=== PATIENT | female | born 1990 | race African-American/Black ===

== ENCOUNTER 2017-03-17 17:55 | Emergency (ER) | payer SELFPAY ==
[2017-03-17 17:57] VITALS: BP 123/55; PULSE 106; RESP 16; TEMP 98.9; O2SAT 99
--- NOTE | 2017-03-17 18:49 | RADRPT ---
EXAM DATE/TIME: 03/17/2017 18:40 [facility] COMPARISON: No previous studies available for comparison. INDICATIONS : Left wrist pain after fall playing basketball. MEDICAL HISTORY : None. SURGICAL HISTORY : None. ENCOUNTER: Initial ACUITY: 1 day PAIN SCORE: 10/10 LOCATION: Left wrist. FINDINGS: Three view examination of the left wrist demonstrates no soft tissue swelling, dislocation, or fractu re. The carpal bones are in normal alignment. The joint spaces are maintained. Bony mineralization is normal. CONCLUSION: Normal examination for a patient of this age. Jacques Soto MD on March 17, 2017 at 18:47 Board Certified Radiologist. This report was verified electronically.
--- NOTE | 2017-03-17 18:58 | RADRPT ---
EXAM DATE/TIME: 03/17/2017 18:43 [facility] COMPARISON: No previous studies available for comparison. INDICATIONS : Left shoulder pain after fall playing basketball. MEDICAL HISTORY : None. SURGICAL HISTORY : None. ENCOUNTER: Initial ACUITY: 1 day PAIN SCORE: 10/10 LOCATION: Left shoulder. FINDINGS: Multiple view examination of the left shoulder demonstrates no evidence of fracture or dislocation. The glenohumeral and acromioclavicular joints are maintained. There is normal range of motion betwee n internal and external rotation. Bony mineralization is normal. CONCLUSION: Normal examination for a patient of this age. Jacques Soto MD on March 17, 2017 at 18:56 Board Certified Radiologist. This report was verified electronically.
[2017-03-17] MEDS ORDERED: CYCL10TA PO (20:44)
[2017-03-17] MEDS ORDERED: IBUP1TAB7 PO (20:44)
--- NOTE | 2017-03-17 20:44 | PD ---
HPI Chief Complaint: Injury Time Seen by Provider: 20:36 Travel History International Travel<30 days: No Contact w/Intl Traveler<30days: No Traveled to known affect area: No History of Present Illness HPI Patient is a 26-year-old female presenting to the emergency department for evaluation of left shoulder and left wrist pain. Patient states she's playing basketball this morning and went up for a lay out and someone tripped her and she landed on her shoulder and wrist. She reports her pain is 8 out of 10, the pain is exacerbated with movement, somewhat alleviated with rest. Symptom onset was gradual and has gotten worse throughout the course of the day. Patient is not taking any medication to alleviate her pain. She denies any other injury. Patient reports her pain is sore. She denies any numbness, weakness or paresthesias. PFSH Past Medical History Medical History: Denies Significant Hx Social History Alcohol Use: No Tobacco Use: No Substance Use: No Allergies-Medications (Allergen,Severity, Reaction): Coded Allergies: No Known Allergies (Unverified , 03/17/17) Review of Systems Except as stated in HPI: all other systems reviewed are Neg Musculoskeletal: Positive: Myalgias, Arthralgias, Limited ROM, Pain Physical Exam Narrative GENERAL: Well-developed, well-nourished, alert female. Resting in no acute distress. SKIN: Warm and dry. No Rash, abrasions, ecchymosis or obvious lesions noted. HEAD: Normocephalic. EYES: No scleral icterus. No injection or drainage. NECK: Supple, trachea midline. No JVD or lymphadenopathy. CARDIOVASCULAR: Regular rate and rhythm without murmurs, gallops, or rubs. RESPIRATORY: Breath sounds equal bilaterally. No accessory muscle use. GASTROINTESTINAL: Abdomen soft, non-tender, nondistended. MUSCULOSKELETAL: No cyanosis, or edema. Tenderness to palpation anterior left shoulder, and left wrist. Decreased active range of motion with abduction of left shoulder. 2+ radial pulse, brisk less than 3 second capillary refill. BACK: Nontender without obvious deformity. No CVA tenderness. Data Data Last Documented VS Vital Signs Date Time Temp Pulse Resp B/P (MAP) Pulse Ox O2 Delivery O2 Flow Rate FiO2 03/17/17 17:57 98.9 106 16 123/55 (77) 99 Orders Orders Wrist, Complete ([id number]) (03/17/17 ) Shoulder, Complete (>2vws) (03/17/17 ) [facility] Medical Decision Making Medical Screen Exam Complete: Yes Emergency Medical Condition: Yes Interpretation(s) Last Impressions Wrist X-Ray 03/17/17 0000 Signed Impressions: Service Date/Time: Friday, March 17, 2017 18:40 - CONCLUSION: Normal examination for a patient of this age. Jacques Soto MD Shoulder X-Ray 03/17/17 0000 Signed Impressions: Service Date/Time: Friday, March 17, 2017 18:43 - CONCLUSION: Normal examination for a patient of this age. Jacques Soto MD Vital Signs Date Time Temp Pulse Resp B/P (MAP) Pulse Ox O2 Delivery O2 Flow Rate FiO2 03/17/17 17:57 98.9 106 16 123/55 (77) 99 Differential Diagnosis Strain versus sprain versus fracture versus contusion versus tendinitis versus other Narrative Course Patient presented for evaluation of left shoulder and wrist pain after playing basketball and falling on it this morning. Patient is neurovascularly intact, no focal deficits noted on exam. Imaging was ordered while patient was waiting in triage. Imaging of the left shoulder and wrist is negative for acute fracture. Physical examination appears most consistent with muscle strain. Patient was encouraged to apply warm heat to affected area, continue range of motion exercises, avoid exacerbating activities, and avoid bed rest. She was encouraged to return to emergency department for any new or worsening symptoms or follow up with her primary doctor. Patient verbalized understanding of these instructions. Patient stable for discharge. Diagnosis Primary Impression: Shoulder injury Qualified Codes: S49.92XA - Unspecified injury of left shoulder and upper arm , initial encounter Additional Impressions: Strain of wrist Qualified Codes: S66.912A - Strain of unspecified muscle, fascia and tendon at wrist and hand level, left hand, initial encounter Muscle ache Referrals: [facility] Primary Care Physician Patient Instructions: General Instructions, Muscle Spasm (ED), Muscle Strain ( ED) Departure Forms: Tests/Procedures, Work Release Special Instructions: No excessive use of left arm for 3-4 days Additional Instructions: Continue range of motion exercises, apply warm heat to the affected areas, avoid bed rest, avoid exacerbating activities Take medications as directed Follow-up with your primary doctor Return to emergency department for any new or worsening symptoms Med/Other Pt SpecificInfo: Prescription(s) given Scripts Cyclobenzaprine (Flexeril) 10 Mg Tab 10 MG PO TID Y for MUSCLE SPASM, #30 TAB 0 Refills Prov: Melany Arechiga 03/17/17 Ibuprofen (Ibuprofen) 800 Mg Tab 800 MG PO Q6HR Y for PAIN, #40 TAB 0 Refills Prov: Melany Arechiga 03/17/17 Disposition: 01 DISCHARGE HOME Condition: Stable Melany Arechiga Mar 17, 2017 20:44
[2017-03-17 20:46] VITALS: BP 115/63
== END 2017-03-17 20:55 | disposition home or self-care (01) ==
LOC: NEPD 17:55
DX: S49.92XA Unspecified injury of left shoulder and upper arm, initial encounter (principal); S66.912A Strain of unspecified muscle, fascia and tendon at wrist and hand level, left hand, initial encounter; M79.1 Myalgia; W03.XXXA Other fall on same level due to collision with another person, initial encounter; Y93.67 Activity, basketball
CPT/HCPCS: 73030; 73110; 99283